=== PATIENT | female | born 1955 | race Caucasian/White ===

== ENCOUNTER 2017-08-04 11:42 | Emergency (ER) | payer OTHER ==
[~2017-08-04] VITALS: Ht 160 cm; Wt 102.7 kg
[2017-08-04 12:32] LABS: HEMOGLOBIN 12.6 G/DL (11.9-15.5); MCH 29.8 PG (29.0-34.0); MCHC 33.2 G/DL (30.0-36.0); MCV 89.8 FL (83-99); PLATELET COUNT 217 K/uL (156-360); RBC DIS.WIDTH-CV 12.8 % (11.8-14.6); RBC DIS.WIDTH-SD 42.2 % (39-53); RED BLOOD COUNT 4.23 M/uL (3.80-5.20); WHITE BLOOD COUNT 5.4 K/uL (4.1-10.2)
[2017-08-04 12:43] LABS: CHLORIDE 107 mEq/L (99-109); POTASSIUM 5.5 mEq/L (3.7-5.4); SODIUM 142 mEq/L (136-147)
[2017-08-04 12:45] LABS: GLUCOSE 140 mg/dL (70-99)
[2017-08-04 12:48] LABS: CREATININE 0.8 mg/dL (0.6-1.3); GFR ESTIMATE (CALCULATED) > 59 mL/min/
[2017-08-04 12:49] LABS: UREA NITROGEN (BUN) 12 mg/dL (9-23)
[2017-08-04 12:54] LABS: TROP-I INTERPRETATION NEGATIVE; TROPONIN-I < 0.01 ng/mL (0.0-0.30)
[2017-08-04 13:44] LABS: LIPASE 5 U/L (1.0-51.0)
[2017-08-04 15:26] LABS: TROP-I INTERPRETATION NEGATIVE; TROPONIN-I < 0.01 ng/mL (0.0-0.30)
[2017-08-04 17:53] VITALS: BP 121/71
== END 2017-08-04 17:54 | disposition home or self-care (01) ==
LOC: EME 11:42
PROVIDERS: Emergency Medicine
DX: R07.89 Other chest pain (principal); R94.31 Abnormal electrocardiogram [ECG] [EKG]; I10 Essential (primary) hypertension; K21.9 Gastro-esophageal reflux disease without esophagitis; Z90.49 Acquired absence of other specified parts of digestive tract; Z88.5 Allergy status to narcotic agent
CPT/HCPCS: 71046; 80048; 83690; 84484; 85027; 93005; 99281; 99284